=== PATIENT | male | born 1990 | race Caucasian/White ===

== ENCOUNTER 2023-07-08 07:43 | Emergency (ER) | payer OTHER ==
[~2023-07-08] VITALS: Ht 177.8 cm; Wt 81.6 kg
[2023-07-08 10:43] LABS: HEMATOCRIT 45.5 % (39.0-48.0); HEMOGLOBIN 15.6 g/dL (13-16.00); MEAN CELL VOLUME 98.8 fL (80.0-100.00); MEAN CORPUSCULAR HGB CONC 34.4 g/dl (32.0-36.0); PLATELET COUNT 139 K/uL (150-450); RED CELL DISTRIBUTION WIDTH 14.7 % (11.5-14.5)
[2023-07-08 11:10] LABS: CALCIUM 9.5 mg/dL (8.5-10.1); CREATININE SERUM 0.92 mg/dL (0.70-1.30); GFR 95.34; POTASSIUM 3.87 mEq/L (3.5-5.1)
[2023-07-08] MEDS ORDERED: CLOTRIMAZOLE-BE15 G1 TOP (11:54)
== END 2023-07-08 12:37 | disposition home or self-care (01) ==
LOC: ER 07:44
PROVIDERS: General Practice
DX: R21 Rash and other nonspecific skin eruption (principal)